=== PATIENT | male | born 2005 | race Two or more races ===

== ENCOUNTER 2024-01-07 07:23 | Emergency (ER) | payer OTHER ==
[~2024-01-07] VITALS: Ht 177.8 cm; Wt 68.0 kg
[2024-01-07] MEDS ORDERED: PROMACTA50 MG PO (07:46)
[2024-01-07] MEDS ORDERED: ZOLOFT25 MG PO (07:46)
[2024-01-07] MEDS ORDERED: VISTARIL25 MG PO (07:47)
[2024-01-07] MEDS ORDERED: ABILIFY20 MG (07:47)
[2024-01-07] MEDS ORDERED: CLINDAMYCIN PHOSPHATE 150 MG/ML (600mg) IM STA (10:01)
[2024-01-07] MEDS ORDERED: METHYLPREDNISOLONE SOD SUCC 40 MG VIAL IM STA (10:02)
== END 2024-01-07 12:16 | disposition home or self-care (01) ==
LOC: ER 07:23 → EMR PED 07:48 → ER 07:48 → EMR PED 12:16
DX: L03.012 Cellulitis of left finger (principal); Z88.8 Allergy status to other drugs, medicaments and biological substances